=== PATIENT | male | born 1930 | race Caucasian/White ===

== ENCOUNTER 2017-05-11 12:27 | Emergency (ER) | payer OTHER ==
[~2017-05-11] VITALS: Ht 172.7 cm; Wt 85.0 kg
[~2017-05-11 12:27] MED LIST: AMLO5TAB22 PO; ASPI325T PO; ATEN-104 PO; DOXA1 PO; HYDR-2768 PO; LISI40TA PO; OMEP20TA39 PO; OXYB5TAB PO; REST30CA PO; TAB-TAB PO
[2017-05-11 12:29] VITALS: BP 178/83; PULSE 68; RESP 20; TEMP 97.6; O2SAT 97
--- NOTE | 2017-05-11 12:49 | PD ---
Physical Exam Time Seen by Provider: 12:48 Narrative 86 y/o male here with constipation for one week. Blood tinged toilet paper today when attempting to have a bm. +Abdominal cramps. Vital signs reviewed. Seen at triage desk. Awaiting bed placement. Data Data Last Documented VS Vital Signs Date Time Temp Pulse Resp B/P Pulse Ox O2 Delivery O2 Flow Rate FiO2 05/11/17 12:29 97.6 68 20 178/83 97 Room Air [facility] Medical Record Reviewed: Yes Supervised Visit with YA: Eddie Tarango May 11, 2017 12:49
--- NOTE | 2017-05-11 15:48 | PD ---
HPI Chief Complaint: Abdominal Pain Time Seen by Provider: 15:48 Travel History International Travel<30 days: No Contact w/Intl Traveler<30days: No Traveled to known affect area: No History of Present Illness HPI 86-year-old male presents to the emergency department for evaluation of constipation. She states he has not had a bowel movement in 7 days despite taking MiraLAX daily. States today he was straining for a long time and when he went to wipe he had a small amount of blood on the toilet paper. Patient denies any abdominal pain. States he has some cramping in sensation like he has to have a bowel movement however he has been unable to. Patient has not taken any pain control. He has switched his BPH medication within the last 2 weeks. Denies any other symptoms at this time. PFSH Past Medical History Hx Anticoagulant Therapy: Yes (81 MG ASA) Anemia: Yes Arthritis: Yes Cancer: Yes (PROSTATE 1998) Cardiac Catheterization: Yes (PTCA 1989) Cardiovascular Problems: Yes (1 STENT) High Cholesterol: Yes Cerebrovascular Accident: Yes (TIA 5 YEARS AGO) Coronary Artery Disease: Yes Diabetes: No Diminished Hearing: Yes Endocrine: No Gastrointestinal Disorders: Yes (GERD) GERD: Yes Genitourinary: Yes (HX OF PROSTATE CA) Hepatitis: No Hiatal Hernia: No Hypertension: Yes Immune Disorder: No Musculoskeletal: Yes (BILATERAL CARPAL TUNNEL, BACK PROBLEMS, ARTHRITIS) Psychiatric: No Reproductive: No Respiratory: No Sleep Apnea: Yes Thyroid Disease: No Past Surgical History Abdominal Surgery: No Body Medical Devices: PENILE IMPLANT,HEART STENT Cardiac Surgery: No Endocrine Surgery: No Eye Surgery: Yes (BILATERAL CATARACT) Genitourinary Surgery: Yes (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) Pacemaker: No Thoracic Surgery: No Other Surgery: Yes Social History Alcohol Use: Yes (1 DAY) Tobacco Use: No (QUIT 1963) Substance Use: No Allergies-Medications (Allergen,Severity, Reaction): Coded Allergies: No Known Allergies (Verified , 05/11/17) Reported Meds & Prescriptions Reported Meds & Active Scripts Active Reported Magnesium (Magnesium Oxide) 400 Mg Tablet C 500 (Ascorbic Acid) 500 Mg Chew B Complex (B-Complex Vitamins) 1 Cap 1 Cap PO DAILY Men's Multi-Vitamin (Multivitamin) 1 Each Tablet Temazepam 30 Mg Cap 30 Mg PO HS PRN Aspirin 81 (Aspirin) 81 Mg Tabdr 81 Mg PO DAILY Atenolol 50 Mg Tab 50 Mg PO DAILY Doxazosin (Doxazosin Mesylate) 2 Mg Tab 2 Mg PO DAILY Amlodipine (Amlodipine Besylate) 10 Mg Tab 10 Mg PO DAILY Lisinopril 40 Mg Tab 40 Mg PO DAILY Review of Systems Except as stated in HPI: all other systems reviewed are Neg Physical Exam Narrative GENERAL: Well-nourished elderly male patient, no acute distress SKIN: Focused skin assessment warm/dry. HEAD: Atraumatic. Normocephalic. EYES: Pupils equal and round. No scleral icterus. No injection or drainage. ENT: No nasal bleeding or discharge. Mucous membranes pink and moist. NECK: Trachea midline. No JVD. CARDIOVASCULAR: Regular rate and rhythm. No murmur appreciated. RESPIRATORY: No accessory muscle use. Clear to auscultation. Breath sounds equal bilaterally. GASTROINTESTINAL: Abdomen soft, non-tender, nondistended. Hepatic and splenic margins not palpable. RECTAL EXAM: No masses or tenderness, stool is brown. MUSCULOSKELETAL: No obvious deformities. No clubbing. No cyanosis. No edema. NEUROLOGICAL: Awake and alert. No obvious cranial nerve deficits. Motor grossly within normal limits. Normal speech. PSYCHIATRIC: Appropriate mood and affect; insight and judgment normal. Data Data Last Documented VS Vital Signs Date Time Temp Pulse Resp B/P Pulse Ox O2 Delivery O2 Flow Rate FiO2 05/11/17 16:08 62 20 172/71 97 Room Air 05/11/17 12:29 97.6 Orders Abdomen, Upright Only (05/11/17 ) Bucket, Enema Cleansing Ea (05/11/17 16:51) [facility] Medical Decision Making Medical Screen Exam Complete: Yes Emergency Medical Condition: Yes Medical Record Reviewed: Yes Differential Diagnosis Constipation versus obstruction versus ileus Narrative Course 86-year-old male presents for his department for evaluation of constipation. Patient has soft brown stool that is Hemoccult negative. Abdominal x-ray is normal. Patient's vital signs are stable. His abdomen is soft and nontender. Patient is given a soapsuds enema with a large brown bowel movement verbalizes marked relief as well as great thanks. Patient will be discharged home. He is encouraged follow-up with primary care provider return immediately with any acute worsening symptoms. [facility] Point of Care Internal Pos. & Neg. Controls: Passed Fecal Specimen Occult Blood: Negative Diagnosis Primary Impression: Constipation Qualified Code: K59.00 - Constipation, unspecified constipation type Referrals: Primary Care Physician Patient Instructions: Constipation (ED), General Instructions Additional Instructions: Maintain adequate oral hydration Increase fiber in her diet MiraLAX as directed on the package to help with regular bowel movements Return immediately with any acute worsening symptoms Med/Other Pt SpecificInfo: No Change to Meds Disposition: 01 DISCHARGE HOME Condition: Stable Fiona Prabhakar May 11, 2017 15:48
[2017-05-11 16:08] VITALS: BP 172/71; PULSE 62; RESP 20; O2SAT 97
[2017-05-11] MEDS ORDERED: LISI40TA PO (16:08)
[2017-05-11] MEDS ORDERED: ASCO1CHW8 (16:08)
[2017-05-11] MEDS ORDERED: DOXA1TAB35 PO (16:08)
[2017-05-11] MEDS ORDERED: MAGN400T24 (16:08)
[2017-05-11] MEDS ORDERED: ATEN50TA PO (16:08)
[2017-05-11] MEDS ORDERED: ASPI-110 PO (16:08)
[2017-05-11] MEDS ORDERED: MULT-267 (16:08)
[2017-05-11] MEDS ORDERED: TEMA30CA PO (16:08)
[2017-05-11] MEDS ORDERED: AMLO10TA2 PO (16:08)
[2017-05-11] MEDS ORDERED: VITACAP7 PO (16:08)
--- NOTE | 2017-05-11 16:51 | RADRPT ---
EXAM DATE/TIME: 05/11/2017 16:13 [place] COMPARISON: No previous studies available for comparison. INDICATIONS : Abdominal cramping, no bowel movement x 1 week, rectal blood MEDICAL HISTORY : None. SURGICAL HISTORY : None. ENCOUNTER: Initial ACUITY: 1 day PAIN SCORE: 5/10 LOCATION: Bilateral abdomen FINDINGS: A single erect view of the abdomen demonstrates the lower lungs to be clear. No evidence of free int raperitoneal gas. The visualized bowel loops are unremarkable. CONCLUSION: Normal examination. Mandeep Ramirez MD on May 11, 2017 at 16:50 Board Certified Radiologist. This report was verified electronically.
== END 2017-05-11 18:46 | disposition home or self-care (01) ==
LOC: NEPC 12:27
DX: K59.00 Constipation, unspecified (principal)
CPT/HCPCS: 74000; 99283